=== PATIENT | female | born 1955 | race Caucasian/White ===

== ENCOUNTER 2022-06-22 10:58 | Emergency (ER) | payer MEDICARE ==
[~2022-06-22] VITALS: Ht 157.5 cm; Wt 77.3 kg
[2022-06-22 11:53] LABS: BASO # 0.1 K/mm3 (0.0-0.2); BASO % 0.7 % (0.0-2.0); EOS # 0.1 K/mm3 (0.0-0.7); EOS % 1.2 % (0.0-4.0); HEMATOCRIT 40.9 % (37.0-47.0); HEMOGLOBIN 12.9 g/dl (12.5-16.0); LYMPH # 2.3 K/mm3 (1.2-3.4); LYMPH % 25.3 % (20.0-51.0); MEAN CELL VOLUME 91 fl (80.0-100.0); MEAN CORPUSCULAR HEMOGLOBIN 29 pg (27-31); MEAN CORPUSCULAR HGB CONC 32 g/dl (33.0-37.0); MEAN PLATELET VOLUME 9.5 fl (7.4-10.4); MONO # 0.5 K/mm3 (0.1-0.6); MONO % 5.5 % (1.7-9.3); PLATELET COUNT 435 K/mm3 (130-400); RED BLOOD COUNT 4.48 M/mm3 (4.10-5.30); REDCELL DISTRIBUTION WIDTH-CV 13.7 % (11.5-14.5)
--- NOTE | 2022-06-22 12:32 | NUR ---
MARQUISE contacted Deshawn at [facility] to notify them that the patients family has mentioned him. Per Deshawn, he told the patient and her family to notify staff that they are working with him. Deshawn states that they are trying to admit the patient to their LTC unit. Per Deshawn, if we are needing to admit the patient to their facility from the ER, they are willing to do that.
[2022-06-22 12:49] LABS: ALBUMIN 3.3 gm/dL (3.4-4.8); BILIRUBIN,TOTAL 0.3 mg/dL (0.2-1.2); CALCIUM 8.8 mg/dL (8.4-10.2); CREATININE, serum 0.65 mg/dL (0.57-1.11); POTASSIUM 4.1 mmol/L (3.5-4.5); TOTAL PROTEIN 6.2 gm/dL (6.2-8.1)
[2022-06-22 14:43] VITALS: BP 144/77; PULSE 88; TEMP 99.1
== END 2022-06-22 14:43 | disposition home or self-care (01) ==
LOC: COL.ER 10:58
PROVIDERS: Nurse Practitioner Primary Care
DX: R19.7 Diarrhea, unspecified (principal); F17.200 Nicotine dependence, unspecified, uncomplicated; Z28.310 Unvaccinated for COVID-19

== ENCOUNTER → 2022-07-28 | Outpatient (CLI) | payer MEDICARE | LOC: COL.RAD 14:13 | DX: M17.11 Unilateral primary osteoarthritis, right knee (principal); M51.36 Other intervertebral disc degeneration, lumbar region; M25.552 Pain in left hip ==

== ENCOUNTER → 2022-07-28 | Outpatient (CLI) | payer MEDICARE | LOC: MHCPAIN 12:44 | DX: M48.062 Spinal stenosis, lumbar region with neurogenic claudication (principal); M25.552 Pain in left hip; M25.561 Pain in right knee | CPT/HCPCS: G0463 ==

== ENCOUNTER → 2022-09-04 | Outpatient (REF) | payer MEDICARE ==
[2022-09-04 14:45] LABS: COLLECTION METHOD CLEAN CATCH
[2022-09-04 14:57] LABS: PH 5.5 (5.0-8.5); SQUAMOUS EPITHELIAL 0-2 /hpf (0-10); URINE APPEARANCE Clear (CLEAR/HAZY); URINE BACTERIA None Seen /hpf (NONE SEEN); URINE COLOR Yellow (YELLOW); URINE KETONE Negative (NEGATIVE); URINE PROTEIN(semi-quant) Negative (NEGATIVE); URINE RBC 0-2 /hpf (0-2)
[2022-09-04 14:58] LABS: URINE BLOOD TRACE-INTACT (NEGATIVE); URINE GLUCOSE 3+ (NEGATIVE); URINE NITRATE Negative (NEGATIVE); URINE UROBILINOGEN 0.2 E.U/dL (0.2-1.0)
== END ==
LOC: ZCOL.LAB 14:40
PROVIDERS: Student in an Organized Health Care Education/Training Program
DX: Z01.89 Encounter for other specified special examinations (principal)

== ENCOUNTER 2023-02-02 11:15 | Outpatient (RCR) | payer MEDICARE ==
[~2023-02-02 11:15] MED LIST: ANTI-DIARRHEAL2 MG PO; ATARAX 25MG25 MG/TAB PO; B-12 500 MCG PO; COLESTID 1GM1 G PO; DESYREL 50MG50 MG PO; EFFEXOR XR75 MG/CAP PO; INSULIN AS100 UNIT/3 SQ; INSULIN GL100 UNIT/2 SQ; JANUVIA 100MG100 MG PO; LIPITOR20 MG PO; LYRICA 75MG CAP75 MG PO; MIRAPEX 1MG PO; NATURAL IRON65 MG; NICODERM C21 MG/PATC TD; PRINIVIL10 MG PO; TYLENOL 500MG500 MG PO; VITAMIN D 50,1.25 MG PO; ZANAFLEX2 MG PO
== END 2023-02-04 | disposition home or self-care (01) ==
LOC: WSPT
DX: M48.062 Spinal stenosis, lumbar region with neurogenic claudication (principal)

== ENCOUNTER → 2023-07-25 | Outpatient (CLI) | payer MEDICARE | LOC: MHCPAIN 10:34 | DX: M48.062 Spinal stenosis, lumbar region with neurogenic claudication (principal); M51.36 Other intervertebral disc degeneration, lumbar region; M17.11 Unilateral primary osteoarthritis, right knee; M54.16 Radiculopathy, lumbar region | CPT/HCPCS: G0463 ==

== ENCOUNTER → 2023-09-12 | Outpatient (CLI) | payer MEDICARE, MEDICAID | LOC: MHCPAIN 12:51 | DX: M48.062 Spinal stenosis, lumbar region with neurogenic claudication (principal); M51.36 Other intervertebral disc degeneration, lumbar region; M17.11 Unilateral primary osteoarthritis, right knee | CPT/HCPCS: G0463 ==

== ENCOUNTER 2023-11-24 11:20 | Emergency (ER) | payer MEDICARE, MEDICAID ==
[~2023-11-24] VITALS: Ht 157.5 cm; Wt 97.7 kg
[~2023-11-24 11:20] MED LIST changes: -DESYREL 50MG50 MG PO; +DESYREL DIVIDO150 M1 PO; +LYRICA 50MG CAP50 MG PO; -LYRICA 75MG CAP75 MG PO; -PRINIVIL10 MG PO; +ZESTRIL 20MG TA20 MG PO
[2023-11-24 11:37] VITALS: TEMP 97.9
[2023-11-24] MEDS ORDERED: Ketorolac 15 MG/ML VIAL IM ONE (13:00)
[2023-11-24] MEDS ORDERED: CALCIUM/MAGNESI1 T13 PO (13:02)
[2023-11-24 14:15] VITALS: BP 116/72; PULSE 88
== END 2023-11-24 14:15 | disposition home or self-care (01) ==
LOC: COL.ER 11:20
DX: M79.604 Pain in right leg (principal); M79.605 Pain in left leg
CPT/HCPCS: J1885

== ENCOUNTER 2023-12-02 07:47 | Inpatient (IN) | payer MEDICARE, MEDICAID ==
[2023-12-02] VITALS (229 sets, daily range): BP systolic 74–104; BP diastolic 38–71; PULSE 114–126; TEMP 98.6–98.9; O2SAT 89–100
[~2023-12-02] VITALS: Ht 157.5 cm; Wt 101.5 kg
[~2023-12-02 07:47] MED LIST changes: +CALCIUM/MAGNESI1 T13 PO
[2023-12-02] MEDS ORDERED: NS 500 ML IV PRN (08:00)
[2023-12-02 08:10] LABS: BASO # 0.1 K/mm3 (0.0-0.2); BASO % 0.4 % (0.0-2.0); EOS # 0.1 K/mm3 (0.0-0.7); EOS % 0.8 % (0.0-4.0); GRAN # 13.2 K/mm3 (1.4-6.5); GRAN % 86.8 % (42.2-75.2); LYMPH # 0.9 K/mm3 (1.2-3.4); MEAN CELL VOLUME 92 fl (80.0-100.0); MEAN CORPUSCULAR HGB CONC 30 g/dl (33.0-37.0); MEAN PLATELET VOLUME 10.3 fl (7.4-10.4); MONO # 0.9 K/mm3 (0.1-0.6); MONO % 5.6 % (1.7-9.3); PLATELET COUNT 352 K/mm3 (130-400); RED BLOOD COUNT 3.57 M/mm3 (4.10-5.30); REDCELL DISTRIBUTION WIDTH-CV 15.2 % (11.5-14.5)
[2023-12-02 08:25] LABS: ALBUMIN 3.4 g/dL (3.4-4.8); BILIRUBIN,TOTAL 0.4 mg/dL (0.2-1.2); C-REACTIVE PROTEIN 8.64 mg/dL (0.00-0.50); CALCIUM 9.2 mg/dL (8.4-10.2); CREATININE, serum 4.02 mg/dL (0.57-1.11); HEMOGLOBIN 9.9 g/dl (12.5-16.0); MEAN CORPUSCULAR HEMOGLOBIN 28 pg (27-31); TOTAL PROTEIN 7.5 g/dl (6.2-8.1)
[2023-12-02 08:28] LABS: POTASSIUM 6.7 mEq/L (3.5-4.5)
[2023-12-02] MEDS ORDERED: Morphine 4 MG/ML VIAL IV ONE (08:30)
[2023-12-02] MEDS ORDERED: Insulin Regular Human (NovoLIN R/HumuLIN R) IV ONE ×2 (08:30→22:30)
[2023-12-02] MEDS ORDERED: Dextrose 50% Water 25 GM/50 ML SYRINGE IV PRN (08:45)
[2023-12-02 09:50] LABS: URINE APPEARANCE CLEAR (CLEAR/HAZY); URINE BLOOD 1+ (NEGATIVE); URINE COLOR YELLOW (YELLOW); URINE GLUCOSE NEGATIVE (NEGATIVE); URINE KETONE NEGATIVE (NEGATIVE); URINE NITRATE NEGATIVE (NEGATIVE); URINE PROTEIN(semi-quant) TRACE (NEGATIVE)
[2023-12-02 10:11] LABS: COLLECTION METHOD CATHETER
[2023-12-02] MEDS ORDERED: Heparin 5,000 UNITS/ML 1 ML VIAL SQ SCH (10:29)
[2023-12-02] MEDS ORDERED: Docusate Sodium 100 MG CAP PO PRN (10:30)
[2023-12-02] MEDS ORDERED: Polyethylene Glycol 3350 17 GM PDS PO PRN (10:30)
[2023-12-02] MEDS ORDERED: D5 1/2 NS 1,000 ML IV SCH (10:30)
[2023-12-02] MEDS ORDERED: Ondansetron 4 MG/2 ML VIAL IV PRN (10:30)
[2023-12-02] MEDS ORDERED: Acetaminophen 325 MG TAB PO PRN (10:30)
[2023-12-02] MEDS ORDERED: Sodium Zirconium Cyclosilicate for Oral Susp 10 GM PACKET PO ONE ×2 (10:45→16:15)
[2023-12-02] MEDS ORDERED: HYDROmorphone 0.5 MG/0.5 ML SYRINGE IV ONE ×2 (10:45→11:45)
[2023-12-02] MEDS ORDERED: tiZANidine 4 MG TAB PO PRN (10:45)
[2023-12-02] MEDS ORDERED: Insulin Lispro (HumaLOG) IV ONE ×2 (10:45→16:15)
[2023-12-02 11:17] LABS: CALCIUM 8.7 mg/dL (8.4-10.2); CREATININE, serum 3.58 mg/dL (0.57-1.11)
[2023-12-02] MEDS ORDERED: Insulin Lispro (HumaLOG) SQ SCH (12:00)
[2023-12-02 13:17] LABS: CALCIUM 8.8 mg/dL (8.4-10.2); CREATININE, serum 3.44 mg/dL (0.57-1.11); POTASSIUM 5.7 mEq/L (3.5-4.5)
[2023-12-02] MEDS ORDERED: Nystatin Powder **** subs to Miconazole Powder TOP SCH (14:03)
[2023-12-02 15:49] LABS: CALCIUM 8.7 mg/dL (8.4-10.2); CREATININE, serum 3.17 mg/dL (0.57-1.11)
[2023-12-02 15:51] LABS: POTASSIUM 6.4 mEq/L (3.5-4.5)
[2023-12-02] MEDS ORDERED: Albuterol 0.083% Neb Soln 2.5 MG/3 ML UD IH ONE (16:15)
[2023-12-02] MEDS ORDERED: Sodium Bicarbonate 8.4% 50 MEQ/50 ML SYRINGE IV ONE (16:15)
[2023-12-02 16:36] LABS: ARTERIAL BLD GAS O2 SATURATION 91.3 % (92-100); ARTERIAL BLD GAS TCO2 CT 19.6; ARTERIAL BLOOD GAS BASE EXCESS -7.1 (-2-2); ARTERIAL BLOOD GAS HCO3 18.5 meq/L (22-26); ARTERIAL BLOOD GAS PCO2 37.4 mmHg (35-45); ARTERIAL BLOOD GAS PO2 62.5 mmHg (80-100); ARTERIAL BLOOD GAS pH 7.31 (7.35-7.45)
[2023-12-02] MEDS ORDERED: Morphine 4 MG/ML VIAL IV PRN (16:45)
[2023-12-02] MEDS ORDERED: hydrALAZINE 20 MG/ML 1 ML VIAL IV PRN (16:45)
[2023-12-02] MEDS ORDERED: NS 500 ML IV ONE (17:00)
[2023-12-02] MEDS ORDERED: Linezolid 600 MG TAB PO SCH (18:00)
[2023-12-02 18:47] LABS: CALCIUM 8.4 mg/dL (8.4-10.2); CREATININE, serum 2.87 mg/dL (0.57-1.11); POTASSIUM 5.2 mEq/L (3.5-4.5)
--- NOTE | 2023-12-02 19:29 | NUR ---
PT ADMITTED FROM ED AT 1330. PT IS DROWSY BUT WAKES EASILY, ANSWERS QUESTIONS APPROPRIATELY. MONTAGUE CATHETER IN PLACE UPON ADMISSION. SKIN TO ABD AND GROIN FOLDS NOTED TO BE EXCORIATED AND OPEN, INTERDRY CLOTH IN PLACE. MULTIPLE OPEN AREAS NOTED TO R SIMENTAL/LOWER LEG, 2X3 CM OPEN ULCER TO L SIMENTAL, BOTH R/T CELLULITIS. WOUNDS LEFT JESSICA. STAGE 2 PRESSURE WOUND TO COCCYX, ON BOTH SIDES OF GLUTEAL CLEFT. PT ON 2HR TURN SCHEDULE.
[2023-12-02 19:58] LABS: CALCIUM 8.1 mg/dL (8.4-10.2); CREATININE, serum 2.61 mg/dL (0.57-1.11); POTASSIUM 5.6 mEq/L (3.5-4.5)
[2023-12-02] MEDS ORDERED: NS 1,000 ML IV SCH (20:00)
[2023-12-02] MEDS ORDERED: Pregabalin 75 MG CAP PO SCH (21:00)
[2023-12-02] MEDS ORDERED: Miconazole 2% Topical Powder BOTTLE TP SCH (21:00)
[2023-12-02] MEDS ORDERED: Atorvastatin 20 MG TAB PO SCH (21:00)
[2023-12-02] MEDS ORDERED: Insulin Glargine-ygfn (Lantus) SQ SCH (21:00)
[2023-12-02 22:05] LABS: CALCIUM 8.3 mg/dL (8.4-10.2); CREATININE, serum 2.43 mg/dL (0.57-1.11)
[2023-12-02] MEDS ORDERED: Dextrose 50% Water 25 GM/50 ML SYRINGE IV ONE (22:30)
[2023-12-03] VITALS (268 sets, daily range): BP systolic 63–1149; BP diastolic 27–99; PULSE 104–140; TEMP 98.1–100.8; O2SAT 57–100
[2023-12-03 00:20] LABS: CALCIUM 8.2 mg/dL (8.4-10.2); POTASSIUM 5.1 mEq/L (3.5-4.5)
[2023-12-03 01:06] LABS: CREATININE, serum 2.27 mg/dL (0.57-1.11)
[2023-12-03 05:41] LABS: BASO # 0.1 K/mm3 (0.0-0.2); BASO % 0.6 % (0.0-2.0); EOS # 0.5 K/mm3 (0.0-0.7); EOS % 3.6 % (0.0-4.0); GRAN % 73.2 % (42.2-75.2); LYMPH # 1.8 K/mm3 (1.2-3.4); LYMPH % 14.7 % (20.0-51.0); MEAN CELL VOLUME 89 fl (80.0-100.0); MEAN CORPUSCULAR HGB CONC 31 g/dl (33.0-37.0); MEAN PLATELET VOLUME 10.4 fl (7.4-10.4); MONO % 7.7 % (1.7-9.3); PLATELET COUNT 366 K/mm3 (130-400)
[2023-12-03 05:45] LABS: HEMATOCRIT 31.9 % (37.0-47.0); HEMOGLOBIN 9.8 g/dl (12.5-16.0); MEAN CORPUSCULAR HEMOGLOBIN 27 pg (27-31)
[2023-12-03 06:04] LABS: C-REACTIVE PROTEIN 14.42 mg/dL (0.00-0.50); CALCIUM 8.5 mg/dL (8.4-10.2); POTASSIUM 5.5 mEq/L (3.5-4.5)
[2023-12-03 06:19] LABS: CREATININE, serum 1.8 mg/dL (0.57-1.11)
[2023-12-03] MEDS ORDERED: Dextrose (Glucose) 15 GM (4 x 3.75 GM) Chewable TABLET PACK PO PRN (07:15)
[2023-12-03] MEDS ORDERED: Dextrose 50% Water 25 GM/50 ML SYRINGE IV PRN ×2 (07:15→12:15)
[2023-12-03] MEDS ORDERED: Glucagon 1 MG VIAL IM PRN (07:15)
[2023-12-03 08:59] LABS: CALCIUM 8.3 mg/dL (8.4-10.2); CREATININE, serum 1.55 mg/dL (0.57-1.11); POTASSIUM 5.4 mEq/L (3.5-4.5)
[2023-12-03] MEDS ORDERED: Fludrocortisone 0.1 MG TAB PO ONE (10:15)
[2023-12-03] MEDS ORDERED: LR 1,000 ML IV ONE ×2 (10:15→11:00)
[2023-12-03] MEDS ORDERED: Vasopressin 20 UNITS in NS 100 ML IV PRN (10:15)
[2023-12-03] MEDS ORDERED: 1: LR 1,000 ML 2: NS 1,000 ML IV SCH (10:15)
[2023-12-03 10:28] LABS: ARTERIAL BLD GAS O2 SATURATION 96.6 % (92-100); ARTERIAL BLD GAS TCO2 CT 13.2; ARTERIAL BLOOD GAS HCO3 12.5 meq/L (22-26); ARTERIAL BLOOD GAS PCO2 24.4 mmHg (35-45); ARTERIAL BLOOD GAS PO2 88.7 mmHg (80-100); ARTERIAL BLOOD GAS pH 7.33 (7.35-7.45)
[2023-12-03] MEDS ORDERED: Sodium Bicarbonate/Water,Steri 1,150 ML IV SCH ×2 (10:45→12:15)
[2023-12-03] MEDS ORDERED: LORazepam 2 MG/ML 1 ML VIAL IV ONE (11:00)
[2023-12-03 11:22] LABS: CALCIUM 7.8 mg/dL (8.4-10.2); CREATININE, serum 1.65 mg/dL (0.57-1.11); POTASSIUM 5.5 mEq/L (3.5-4.5)
[2023-12-03] MEDS ORDERED: Midazolam 2 MG/2 ML VIAL IV ONE (11:34)
[2023-12-03] MEDS ORDERED: Rocuronium 50 MG/5 ML Multi-Dose VIAL IV ONE (11:34)
[2023-12-03] MEDS ORDERED: Phenylephrine 500 MCG/5 ML VIAL IV ONE (12:00)
[2023-12-03] MEDS ORDERED: Insulin Human Regular/NS 100 ML IV SCH (12:15)
[2023-12-03] MEDS ORDERED: Naloxone 0.4 MG/ML VIAL IV PRN (12:15)
[2023-12-03] MEDS ORDERED: fentaNYL 100 ML IV SCH (12:15)
[2023-12-03] MEDS ORDERED: Albuterol 0.083% Neb Soln 2.5 MG/3 ML UD IH PRN (12:15)
[2023-12-03 13:02] LABS: CALCIUM 7.2 mg/dL (8.4-10.2); CREATININE, serum 1.76 mg/dL (0.57-1.11)
[2023-12-03 13:04] LABS: MAGNESIUM 2.7 mg/dL (1.6-2.6); PHOSPHOROUS 5.5 mg/dL (2.3-4.7)
[2023-12-03 13:09] LABS: POTASSIUM 7.3 mEq/L (3.5-4.5)
[2023-12-03 13:36] LABS: ARTERIAL BLD GAS O2 SATURATION 99.9 % (92-100); ARTERIAL BLD GAS TCO2 CT 12.3; ARTERIAL BLOOD GAS BASE EXCESS -13.7 (-2-2); ARTERIAL BLOOD GAS HCO3 11.5 meq/L (22-26); ARTERIAL BLOOD GAS PCO2 25.2 mmHg (35-45); ARTERIAL BLOOD GAS pH 7.28 (7.35-7.45)
[2023-12-03 13:37] LABS: ARTERIAL BLOOD GAS PO2 293.1 mmHg (80-100)
--- NOTE | 2023-12-03 13:56 | NUR ---
MARQUISE attempted to meet with Pt bedside to complete initial consult and discuss discharge planning. Pt unable to complete assessment due to medical condition. MARQUISE completed assessment with DPLORI Zepedaie [phone] in ICU waiting room. Multiple family members were here visiting. DPOA paperwork was provided to nursing staff. Pt resides at [facility] [place]. PCP confirmed [facility]. Siomara unsure pharmacy and states it is that the nursing facility uses. Siomara stated before this, Pt was ambulating fine using a walker but has been in a wheelchair lately. Siomara stated before this Pt was independent with ADLs but unsure her condition after hospital stay. MARQUISE attempted to get more information from Siomara about what she meant by "this" but could not get additional information. Siomara has many concerns with Pt returning back to nursing facility. Siomara asked MARQUISE if I was the SW coming to speak to her about the facility, MARQUISE informed her that no that is Nyla and she will touch base tomorrow. Siomara had no additional questions for SW. MARQUISE will continue to follow for D/C planning. D/C disposition: TBD pending hospital course
[2023-12-03] MEDS ORDERED: Albuterol/Ipratropium 3 MG-0.5 MG/3 ML Neb Soln IH SCH (14:00)
[2023-12-03 15:54] LABS: CALCIUM 7.4 mg/dL (8.4-10.2); CREATININE, serum 1.86 mg/dL (0.57-1.11); POTASSIUM 5.5 mEq/L (3.5-4.5)
[2023-12-03] MEDS ORDERED: LR 500 ML IV ONE (16:15)
[2023-12-03] MEDS ORDERED: Sodium Bicarbonate 8.4% 50 MEQ/50 ML SYRINGE IV ONE (18:30)
--- NOTE | 2023-12-03 20:16 | NUR ---
[address] MAHONEY. AT THIS TIME PT BECAME HYPOTENSIVE, CONFUSED, AGITATED, DID NOT FOLLOW COMMANDS. OXYGEN NEEDS INCREASED. PT WAS ALERT AND ORIENTED PRIOR TO THIS EVENT. THIS NURSE AND DR MAHONEY SPOKE W/ PT'S DAUGHTER MIRYAM, DECISION TO INTUBATE WAS MADE. 1134 VERSED, PROPOFOL, ROCURONIUM, LOUANN ALL GIVEN BY REBA CARLOS CRNA. 1135 PT INTUBATED BY REBA CARLOS CRNA. 7.5 ETT PLACED, MEASURED 22CM AT TEETH. OG TUBE ALSO PLACED BY NURSE AT THIS TIME. PLACEMENT CONFIRMED W/ XRAY. 1200 ART LINE PLACED BY NOEL. BLOOD PRESSURE LABILE THROUGHOUT AFTERNOON, VASOPRESSIN STARTED IN ADDITION TO LEVOPHED. BED BATH DONE W/ SURGICAL SCRUB, ALL SKIN THOROUGHLY DRIED. INTERDRY PLACED TO EXCORIATED AREAS IN ABD AND GROIN FOLDS. ULCERS TO LOWER LEGS LEFT OPEN TO AIR.
--- NOTE | 2023-12-03 20:23 | NUR ---
UNABLE TO OBTAIN O2 SATURATIONS VIA PULSE OX.
[2023-12-03 21:03] LABS: CALCIUM 7.2 mg/dL (8.4-10.2); CREATININE, serum 1.63 mg/dL (0.57-1.11); POTASSIUM 4.6 mEq/L (3.5-4.5)
--- NOTE | 2023-12-03 21:38 | NUR ---
FIO2 REDUCED TO 50%.
--- NOTE | 2023-12-03 21:40 | NUR ---
PT AWAKE AND AGITATED ON VENTILATOR. SCANT CLEAR THICK SXN'D FROM ETT.
--- NOTE | 2023-12-03 23:46 | NUR ---
FIO2 REDUCED TO 45%.
[2023-12-04] VITALS (211 sets, daily range): BP systolic 103–134; BP diastolic 53–86; PULSE 100–130; TEMP 95–99.1; O2SAT 73–100
--- NOTE | 2023-12-04 00:26 | NUR ---
PT SWITCHED FROM HEATED HUMIDITY TO HME.
--- NOTE | 2023-12-04 01:16 | NUR ---
LARGE THICK YELLOW SXN'D FROM ETT.
[2023-12-04 03:32] LABS: ALBUMIN 2.2 g/dL (3.4-4.8); ALKALINE PHOSPHATASE 134 U/L (40-150); ANION GAP 14 mmol/L (7-16); BILIRUBIN,TOTAL 0.6 mg/dL (0.2-1.2); CALCIUM 7.2 mg/dL (8.4-10.2); CHLORIDE 102 mEq/L (98-107); CREATININE, serum 1.46 mg/dL (0.57-1.11); GLUCOSE 245 mg/dL (70-99); POTASSIUM 3.8 mEq/L (3.5-4.5); SODIUM 139 mEq/L (136-145); TOTAL PROTEIN 5.3 g/dl (6.2-8.1)
[2023-12-04] MEDS ORDERED: Potassium Chloride 100 ML IV SCH ×2 (04:00→15:30)
[2023-12-04] MEDS ORDERED: *Potassium Replacement Protocol MC SCH (04:00)
--- NOTE | 2023-12-04 04:11 | NUR ---
FIO2 INCREASED TO 60% TO MAINTAIN SATURATIONS ABOVE 92%.
[2023-12-04 04:29] LABS: BLOOD UREA NITROGEN 41 mg/dL (10-20)
[2023-12-04 05:31] LABS: ARTERIAL BLD GAS O2 SATURATION 98.6 % (92-100); ARTERIAL BLD GAS TCO2 CT 19.1; ARTERIAL BLOOD GAS BASE EXCESS -3.7 (-2-2); ARTERIAL BLOOD GAS HCO3 18.4 meq/L (22-26); ARTERIAL BLOOD GAS PCO2 25.1 mmHg (35-45); ARTERIAL BLOOD GAS PO2 127.5 mmHg (80-100); ARTERIAL BLOOD GAS pH 7.48 (7.35-7.45)
[2023-12-04 06:06] LABS: BASO % 0.2 % (0.0-2.0); EOS % 0.1 % (0.0-4.0); GRAN # 15.8 K/mm3 (1.4-6.5); GRAN % 87.2 % (42.2-75.2); HEMOGLOBIN 11.1 g/dl (12.5-16.0); LYMPH # 1.6 K/mm3 (1.2-3.4); LYMPH % 8.5 % (20.0-51.0); MEAN CELL VOLUME 87 fl (80.0-100.0); MEAN CORPUSCULAR HEMOGLOBIN 28 pg (27-31); MEAN CORPUSCULAR HGB CONC 32 g/dl (33.0-37.0); MONO # 0.6 K/mm3 (0.1-0.6); MONO % 3.5 % (1.7-9.3); RED BLOOD COUNT 3.97 M/mm3 (4.10-5.30); REDCELL DISTRIBUTION WIDTH-CV 14.8 % (11.5-14.5)
[2023-12-04 06:29] LABS: MAGNESIUM 2.7 mg/dL (1.6-2.6); PHOSPHOROUS 3.2 mg/dL (2.3-4.7)
[2023-12-04 06:40] LABS: CALCIUM 7.4 mg/dL (8.4-10.2); CREATININE, serum 1.4 mg/dL (0.57-1.11); POTASSIUM 3.7 mEq/L (3.5-4.5)
[2023-12-04 07:17] LABS: HEMATOCRIT 34.4 % (37.0-47.0)
[2023-12-04 07:18] LABS: MEAN PLATELET VOLUME 10.8 fl (7.4-10.4); PLATELET COUNT 218 K/mm3 (130-400)
[2023-12-04] MEDS ORDERED: Fludrocortisone 0.1 MG TAB PO SCH (08:00)
--- NOTE | 2023-12-04 08:00 | NUR ---
ASSESSMENT COMPLETED AT THIS TIME BY THIS RN AND SEVERO COOK. PT'S DAUGHTER MIRYAM AT THE BEDSIDE AND TEARFUL. MIRYAM ASKS WHEN PROVIDERS WILL BE BY TO SEE PT. MIRYAM NOTIFIED THAT BALJIT ROMERO WITH WOUND CARE HAD ALREADY BEEN BY TO ASSESS PT. MIRYAM UPSET THAT SHE WAS NOT NOTIFIED WHEN NICK WAS HERE. THIS RN EXPLAINED TO MIRYAM THAT WE WERE UNAWARE SHE WANTED TO BE PRESENT FOR NICK'S VISIT. THIS RN CALLED NICK TO SEE IF SHE WAS STILL IN THE BUILING. NICK WAS NOT IN THE BUIDLING BUT WILLING TO SPEAK WITH MIRYAM OVER THE PHONE. MIRYAM AND NICK HAD LONG CONVERSATION REGUARDING PT'S PAST AND CURRENT CARE. ANNE AND MILAN WITH SOCIAL WORK ALSO IN TO SEE MIRYAM. MIRYAM LEFT TO SPEAK WITH ANNE AND MILAN IN THE WAITING ROOM. CHUX CHANGED BENEATH PT'S LEGS DUE TO BE DRAINAGE FROM BLE WOUNDS. REDNESS NOTED TO PT'S GROIN AND PANNUS; INTER-DRY PLACED IN SKIN FOLDS ALONG WITH MICONAZOLE. SKIN TEAR NOTED TO LEFT UPPER BUTTOCK APPROX [id number]. PT REMAINS ON INSULIN GTT WITH HOURLY ACCU CHECKS. MIRYAM UPDATED ON PLAN OF CARE AND ALL QUESTIONS ANSWERED APPROPRIATELY.
[2023-12-04] MEDS ORDERED: INSULIN AS100 UNIT/3 SQ (08:32)
[2023-12-04] MEDS ORDERED: Insulin Glargine-ygfn (Lantus) SQ ONE ×2 (10:15→10:30)
[2023-12-04] MEDS ORDERED: methylPREDNISolone Sod Succ 40 MG/ML VIAL IV SCH (10:15)
--- NOTE | 2023-12-04 10:21 | NUR ---
MARQUISE and CM Director Nyla Duncan met with patient's daughter Siomara in family room in ICU. Siomara tearful, overwhelmed and upset with patient condition. She had just spoken with wound care via phone and was visibly upset and angry. Siomara verified that patient has lived at [facility] for 2 years and has been happy there and is involved with other residents. Siomara shared that her father had been at [facility] until his . Siomara states that she is patient's DPOA and [facility] can provide a copy. Nyla reached out to [facility] to request copy be faxed for patient's chart. Siomara was provided opportunity to express her frustrations and concerns. Medicare.gov list of SNFs provided for [place] and [facility] for Siomara to review if they decide patient will not return to [facility]. MARQUISE discussed all levels of care for consideration for discharge to include LTACH, Swing Bed and SNF. All questions answered. Siomara provided her contact numbers as cell: [phone] and her work at [employer] [phone] between 8-5 daily. Siomara states to call her work number during the day if she is not at hospital with patient. Siomara stated she has a sister that is not well involved with patient due to being an addict and having limited relationship with patient. Siomara states sister may visit.
[2023-12-04] MEDS ORDERED: NORCO 325 MG-51 TAB PO (11:48)
[2023-12-04] MEDS ORDERED: FLONASEALLERGY NS (11:50)
[2023-12-04] MEDS ORDERED: MAG-OX 400400 MG/TAB PO (11:52)
[2023-12-04] MEDS ORDERED: VITAMIN D31000 IU PO (11:52)
--- NOTE | 2023-12-04 11:55 | NUR ---
Data: Spiritual care visit attempted during Waiter/Waitress rounds. Patient intubated. No visitors. Assessment: Not at this time. Plan of Care: Chaplains will remain available as needed/requested while Patient is admitted to this hospital.
[2023-12-04] MEDS ORDERED: CALCIUM 600-D 61 TAB PO (12:05)
[2023-12-04] MEDS ORDERED: LASIX 40MG TABL40 MG PO (12:06)
[2023-12-04] MEDS ORDERED: MIRALAX PA17 GM/Dose PO (12:07)
[2023-12-04] MEDS ORDERED: FOLIC ACID0.4 MG PO (12:07)
[2023-12-04] MEDS ORDERED: EFFEXOR XR37.5 MG/CA PO (12:08)
[2023-12-04 13:16] LABS: ARTERIAL BLD GAS TCO2 CT 24.7; ARTERIAL BLOOD GAS BASE EXCESS 1.9 (-2-2); ARTERIAL BLOOD GAS HCO3 23.8 meq/L (22-26); ARTERIAL BLOOD GAS PCO2 28.2 mmHg (35-45); ARTERIAL BLOOD GAS PO2 71.9 mmHg (80-100); ARTERIAL BLOOD GAS pH 7.54 (7.35-7.45)
--- NOTE | 2023-12-04 16:45 | NUR ---
Pt taken for a CT scan of the brain at 1630. Pt accompanied by this RN, Nimisha,RN, and RT via bed. Pt arrived back to the ICU at this time. Monitors attached to pt. VSS. Pt repositioned. IV infusions resumed.
--- NOTE | 2023-12-04 17:31 | NUR ---
SEDATION VACATION NOT NECESSARY AT THIS TIME. PT WAS OFF SEDATION FOR THE MAJORITY OF SHIFT.
[2023-12-04] MEDS ORDERED: Budesonide Neb Susp 0.5 MG/2 ML AMP IH SCH (19:00)
[2023-12-04 20:22] LABS: CALCIUM 7.3 mg/dL (8.4-10.2); CREATININE, serum 1.64 mg/dL (0.57-1.11); POTASSIUM 4.2 mEq/L (3.5-4.5)
[2023-12-04 21:18] LABS: ARTERIAL BLD GAS O2 SATURATION 91.5 % (92-100); ARTERIAL BLD GAS TCO2 CT 25.8; ARTERIAL BLOOD GAS BASE EXCESS 3.1 (-2-2); ARTERIAL BLOOD GAS HCO3 24.9 meq/L (22-26); ARTERIAL BLOOD GAS PCO2 29.4 mmHg (35-45); ARTERIAL BLOOD GAS PO2 60.3 mmHg (80-100); ARTERIAL BLOOD GAS pH 7.55 (7.35-7.45)
[2023-12-05] VITALS (119 sets, daily range): BP systolic 87–142; BP diastolic 43–110; PULSE 94–134; TEMP 98.1–99.1; O2SAT 90–99
[2023-12-05 04:47] LABS: MEAN CELL VOLUME 86 fl (80.0-100.0); MEAN CORPUSCULAR HGB CONC 32 g/dl (33.0-37.0); MEAN PLATELET VOLUME 10.7 fl (7.4-10.4); PLATELET COUNT 223 K/mm3 (130-400); RED BLOOD COUNT 3.45 M/mm3 (4.10-5.30); REDCELL DISTRIBUTION WIDTH-CV 14.7 % (11.5-14.5)
[2023-12-05 04:54] LABS: CALCIUM 7.3 mg/dL (8.4-10.2); CREATININE, serum 1.8 mg/dL (0.57-1.11); MAGNESIUM 2.5 mg/dL (1.6-2.6); PHOSPHOROUS 3.7 mg/dL (2.3-4.7); POTASSIUM 3.5 mEq/L (3.5-4.5)
[2023-12-05 05:02] LABS: HEMATOCRIT 29.6 % (37.0-47.0); HEMOGLOBIN 9.6 g/dl (12.5-16.0); MEAN CORPUSCULAR HEMOGLOBIN 28 pg (27-31)
[2023-12-05] MEDS ORDERED: Potassium Chloride 100 ML IV SCH (05:15)
[2023-12-05] MEDS ORDERED: *Potassium Replacement Protocol MC SCH (05:15)
[2023-12-05 05:41] LABS: ARTERIAL BLD GAS O2 SATURATION 91.6 % (92-100); ARTERIAL BLD GAS TCO2 CT 26.3; ARTERIAL BLOOD GAS BASE EXCESS 3.2 (-2-2); ARTERIAL BLOOD GAS HCO3 25.3 meq/L (22-26); ARTERIAL BLOOD GAS PCO2 30.1 mmHg (35-45); ARTERIAL BLOOD GAS PO2 63.2 mmHg (80-100); ARTERIAL BLOOD GAS pH 7.54 (7.35-7.45)
[2023-12-05 05:49] LABS: BAND 6 % (0-10); LYMPHOCYTE 4 % (20.0-51.0); NEUTROPHILS 89 % (42.0-75.2); NUCLEATED RED BLOOD CELL 1 (0-6); PLATELET ESTIMATE NORMAL (NORMAL)
[2023-12-05] MEDS ORDERED: Insulin Lispro (HumaLOG) SQ SCH (09:21)
[2023-12-05] MEDS ORDERED: methylPREDNISolone Sod Succ 40 MG/ML VIAL IV SCH (09:30)
[2023-12-05] MEDS ORDERED: Furosemide 40 MG/4 ML VIAL IV ONE (09:30)
[2023-12-05] MEDS ORDERED: Insulin Glargine-ygfn (Lantus) SQ SCH (09:30)
--- NOTE | 2023-12-05 10:00 | NUR ---
PT REMAINS INTUBATED AND SEDATED. PT GIVEN COMPLETED BATH AND TOLERATED WELL. PT'S DAUGHTER MIRYAM UPDATED ON PT'S CONDITION BY THIS RN AND DR. Phoebe MAHONEY. MIRYAM ALSO AWARE OF PLAN OF CARE; ALL QUESTIONS ANSWERED APPROPRIATELY.
[2023-12-05] MEDS ORDERED: Venlafaxine XR 37.5 MG CAP PO SCH (12:15)
--- NOTE | 2023-12-05 15:56 | NUR ---
FLOW RATE OF LEVOPHED CHANGED TO 15.2 DUE TO CHANGING FROM QUAD STRENGTH LEVOPHED TO REGULAR STRENGTH CONCENTRATION.
[2023-12-05] MEDS ORDERED: Pregabalin 50 MG CAP PO SCH (21:00)
[2023-12-06] VITALS (149 sets, daily range): BP systolic 78–153; BP diastolic 43–71; PULSE 80–117; TEMP 98.3–99.7; O2SAT 92–99
[2023-12-06 05:33] LABS: ARTERIAL BLD GAS TCO2 CT 21.1; ARTERIAL BLOOD GAS BASE EXCESS -1.9 (-2-2); ARTERIAL BLOOD GAS HCO3 20.3 meq/L (22-26); ARTERIAL BLOOD GAS PCO2 25.7 mmHg (35-45); ARTERIAL BLOOD GAS PO2 91.1 mmHg (80-100); ARTERIAL BLOOD GAS pH 7.52 (7.35-7.45)
[2023-12-06 05:36] LABS: BASO % 0.1 % (0.0-2.0); GRAN # 15.8 K/mm3 (1.4-6.5); GRAN % 88.8 % (42.2-75.2); LYMPH # 1.4 K/mm3 (1.2-3.4); LYMPH % 7.6 % (20.0-51.0); MEAN CELL VOLUME 86 fl (80.0-100.0); MEAN CORPUSCULAR HGB CONC 32 g/dl (33.0-37.0); MEAN PLATELET VOLUME 11.1 fl (7.4-10.4); MONO # 0.4 K/mm3 (0.1-0.6); MONO % 2.5 % (1.7-9.3); PLATELET COUNT 173 K/mm3 (130-400); RED BLOOD COUNT 3.16 M/mm3 (4.10-5.30)
[2023-12-06 05:40] LABS: CALCIUM 6.9 mg/dL (8.4-10.2); CREATININE, serum 2.36 mg/dL (0.57-1.11); MAGNESIUM 2.6 mg/dL (1.6-2.6); PHOSPHOROUS 4.3 mg/dL (2.3-4.7); POTASSIUM 3.8 mEq/L (3.5-4.5)
[2023-12-06 05:41] LABS: HEMATOCRIT 27.2 % (37.0-47.0); HEMOGLOBIN 8.8 g/dl (12.5-16.0); MEAN CORPUSCULAR HEMOGLOBIN 28 pg (27-31)
--- NOTE | 2023-12-06 07:00 | NUR ---
Report recieved from SEVERO Cooper. Pt remains intubated. Sedation has been of since 399. Pt not making any purposful movements at this time. Tube feeding is off. Pt has levophed infusing at 0.04mcg/kg/min. Pt has several wounds over body. Pt has david in place, free of kinks and twists. 2 point soft wrist restraints in place. Will continue with POC.
[2023-12-06] MEDS ORDERED: Insulin Glargine-ygfn (Lantus) SQ SCH ×2 (09:30→09:45)
--- NOTE | 2023-12-06 09:58 | NUR ---
Meeting with Daughters, Siomara and Uma, with Delores SMILEY with Woundcare. Uma and Siomara were frustrated with the care that their mother recieved at [facility]. Will speak with Social Work to get them the names and contact info that they need to voice their concerns with the half-way. As with wound care, we did show all wounds to the daughters, explained the treatment plan and answered many questions.
[2023-12-06] MEDS ORDERED: Insulin Glargine-ygfn (Lantus) SQ ONE (10:30)
--- NOTE | 2023-12-06 10:44 | NUR ---
SW attended clinical rounds with medical team. No family present. Patient remains intubated and sedated. Discharge plan pending medical course. Clinical updates to be sent to [facility] today. SW will continue to follow. Discharge plan: pending medical course vs return to [facility]
--- NOTE | 2023-12-06 12:24 | NUR ---
Art line no longer reading or drawing blood, disconinuted. Pictures of wound on legs and buttocks taken.
[2023-12-06] MEDS ORDERED: Potassium Chloride 100 ML IV ONE (12:45)
[2023-12-06] MEDS ORDERED: LR 1,000 ML IV SCH (17:00)
--- NOTE | 2023-12-06 17:03 | NUR ---
Sedation vacation not preformed- sedation was off at start of shift- pt was unable to follow commands with sedation off
[2023-12-06 18:34] LABS: COLLECTION METHOD CATHETER
[2023-12-06 18:47] LABS: URINE APPEARANCE CLEAR (CLEAR/HAZY); URINE BLOOD 3+ (NEGATIVE); URINE COLOR YELLOW (YELLOW); URINE GLUCOSE NEGATIVE (NEGATIVE); URINE KETONE NEGATIVE (NEGATIVE); URINE NITRATE NEGATIVE (NEGATIVE); URINE PROTEIN(semi-quant) 1+ (NEGATIVE); URINE UROBILINOGEN 0.2 E.U/dL (0.2-1.0)
--- NOTE | 2023-12-06 20:02 | NUR ---
PT NOT FOLLOWING COMMANDS. PUPILS EQUAL, ROUND AND REACTIVE. STABLE ON ROUNDS. NO SIGN OF DISTRESS AT THIS TIME. CONTINUE PLAN OF CARE.
--- NOTE | 2023-12-06 22:47 | NUR ---
EXPIRATORY WHEEZES HEARD THROUGHOUT. PRN ALBUTEROL GIVEN. ALSO SXN'D OUT MODERATE THICK VAZ SPUTUM AFTER MOVING PT IN BED.
[2023-12-07] VITALS (256 sets, daily range): BP systolic 95–117; BP diastolic 48–73; PULSE 82–120; TEMP 98.1–98.8; O2SAT 90–98
[2023-12-07 04:55] LABS: BASO % 0.1 % (0.0-2.0); GRAN # 15.2 K/mm3 (1.4-6.5); LYMPH # 1.2 K/mm3 (1.2-3.4); LYMPH % 7.2 % (20.0-51.0); MEAN CELL VOLUME 87 fl (80.0-100.0); MEAN CORPUSCULAR HGB CONC 32 g/dl (33.0-37.0); MEAN PLATELET VOLUME 11.3 fl (7.4-10.4); MONO # 0.4 K/mm3 (0.1-0.6); MONO % 2.6 % (1.7-9.3); PLATELET COUNT 151 K/mm3 (130-400); RED BLOOD COUNT 2.91 M/mm3 (4.10-5.30); REDCELL DISTRIBUTION WIDTH-CV 15.3 % (11.5-14.5)
[2023-12-07 04:56] LABS: HEMATOCRIT 25.4 % (37.0-47.0); HEMOGLOBIN 8.1 g/dl (12.5-16.0); MEAN CORPUSCULAR HEMOGLOBIN 28 pg (27-31)
[2023-12-07 05:15] LABS: CALCIUM 7.2 mg/dL (8.4-10.2); CREATININE, serum 2.59 mg/dL (0.57-1.11); POTASSIUM 3.9 mEq/L (3.5-4.5)
--- NOTE | 2023-12-07 05:20 | NUR ---
SEDATION DECREASED SLOWLY OVER NIGHT. FENTANYL AND PROPOFOL PLACED ON STANDBY AT 0500. PT WILL NOT FOLLOW COMMANDS. WILL OPEN EYES IN RESPONSE TO PAIN.
[2023-12-07 05:29] LABS: ARTERIAL BLD GAS O2 SATURATION 96.7 % (92-100); ARTERIAL BLD GAS TCO2 CT 24.1; ARTERIAL BLOOD GAS BASE EXCESS -0.6 (-2-2); ARTERIAL BLOOD GAS PCO2 33.6 mmHg (35-45); ARTERIAL BLOOD GAS PO2 95.1 mmHg (80-100); ARTERIAL BLOOD GAS pH 7.45 (7.35-7.45)
--- NOTE | 2023-12-07 08:00 | NUR ---
PT REMAINS OFF OF SEDATION. SEDATION HAS BEEN OFF SINCE 0500. PT OPENS EYES SPONTANEOUSLY BUT ONLY REACTS TO PAIN. PT DOES NOT FOLLOW COMMANDS. PT CURRENTLY ON SPONTANEOUS BREATHING TRIAL AND TOLERATING WELL. PT'S DAUGHTER MIRYAM AT THE BEDSIDE AND UPDATED ON PT'S CONDITION AND PLAN OF CARE. DR. MAHONEY ALSO SPOKE WITH MIRYAM AT THIS TIME.
[2023-12-07 08:36] LABS: ARTERIAL BLD GAS O2 SATURATION 92.9 % (92-100); ARTERIAL BLD GAS TCO2 CT 21.5; ARTERIAL BLOOD GAS HCO3 20.6 meq/L (22-26); ARTERIAL BLOOD GAS PCO2 30.7 mmHg (35-45); ARTERIAL BLOOD GAS pH 7.44 (7.35-7.45)
[2023-12-07] MEDS ORDERED: Pantoprazole 40 MG in NS 10 ML IV SCH (09:00)
[2023-12-07] MEDS ORDERED: Insulin Glargine-ygfn (Lantus) SQ SCH (10:00)
[2023-12-07] MEDS ORDERED: Insulin Glargine-ygfn (Lantus) SQ ONE (10:45)
--- NOTE | 2023-12-07 12:30 | NUR ---
1232- THIS RN AT THE BEDSIDE; PT'S HEART RATE WENT FROM 130'S UP TO 180'S. RHYTHM APPEARS TO BE SINUS TACH AT THIS TIME. DR. VALLES CALLED AND MADE AWARE. EKG ORDERED AND RT MADE AWARE. 1233- RT DOING EKG AT THIS TIME. 1236- PT'S HEART RATE SLOWED TO 120'S WHILE RT WAS SETTING UP FOR EKG. EKG CAPTURED. DR. VALLES CALLED AND MADE AWARE OF RESULTS. NO NEW ORDERS RECEIVED FURTHER. 1240-SEDATION INITIATED AT STARTING RATES. PT'S HEART RATE REMAINS SINUS RHYTHM IN THE 120'S. BP 101/72. DR. Phoebe MAHONEY ALSO AWARE OF EVENTS.
--- NOTE | 2023-12-07 13:30 | NUR ---
supervisor fur floor worker attended interdisciplinary clinical rounding with Dr. Harding and Dr. Dominguez. Dr Dominguez reported patient may need [facility] if condition does not improve. SW secure emailed clinical updates to [facility]. Discharge plan: pending medical status
--- NOTE | 2023-12-07 13:37 | NUR ---
maintenance worker contacted Deshawn at [facility] and updated him on patient's status. Deshawn stated if patient goes to LTACH to notify him so he can update the team. MARQUISE explained she would do so.
[2023-12-07] MEDS ORDERED: Insulin Lispro (HumaLOG) SQ SCH (16:00)
[2023-12-07] MEDS ORDERED: Furosemide 100 MG/10 ML VIAL IV ONE (17:15)
[2023-12-08] VITALS (158 sets, daily range): BP systolic 102–130; BP diastolic 48–66; PULSE 87–105; TEMP 98.1–98.5; O2SAT 94–100
[2023-12-08 04:23] LABS: MEAN CELL VOLUME 91 fl (80.0-100.0); MEAN CORPUSCULAR HGB CONC 31 g/dl (33.0-37.0); MEAN PLATELET VOLUME 11.4 fl (7.4-10.4); PLATELET COUNT 177 K/mm3 (130-400); RED BLOOD COUNT 2.55 M/mm3 (4.10-5.30); REDCELL DISTRIBUTION WIDTH-CV 15.5 % (11.5-14.5)
[2023-12-08 04:48] LABS: CALCIUM 7.4 mg/dL (8.4-10.2); CREATININE, serum 3.06 mg/dL (0.57-1.11)
[2023-12-08 04:51] LABS: HEMATOCRIT 23.2 % (37.0-47.0); HEMOGLOBIN 7.2 g/dl (12.5-16.0); MEAN CORPUSCULAR HEMOGLOBIN 28 pg (27-31)
--- NOTE | 2023-12-08 05:35 | NUR ---
PT WAS GIVEN LASIX TODAY. BLOOD PRESSURE SOFT. MAY NEED TO RESTART LEVOPHED. PT IS RESTING QUIETLY AT THIS TIME. PT STILL DOES NOT FOLLOW COMMANDS. RESPIRATIONS EVEN AND UNLABORED. NO SIGN OF DISTRESS AT THIS TIME. CONTINUE PLAN OF CARE
[2023-12-08 06:02] LABS: ARTERIAL BLD GAS O2 SATURATION 96.3 % (92-100); ARTERIAL BLD GAS TCO2 CT 23.8; ARTERIAL BLOOD GAS BASE EXCESS -0.7 (-2-2); ARTERIAL BLOOD GAS HCO3 22.8 meq/L (22-26); ARTERIAL BLOOD GAS PCO2 33.1 mmHg (35-45); ARTERIAL BLOOD GAS PO2 79.5 mmHg (80-100); ARTERIAL BLOOD GAS pH 7.46 (7.35-7.45)
[2023-12-08 06:03] LABS: ANISOCYTOSIS 1+; BAND 2 % (0-10); LYMPHOCYTE 5 % (20.0-51.0); NEUTROPHILS 91 % (42.0-75.2); NUCLEATED RED BLOOD CELL 1 (0-6); PLATELET ESTIMATE NORMAL (NORMAL)
--- NOTE | 2023-12-08 08:06 | NUR ---
Patient is resting with eyes closed, IV PROP and FENT infusing appropriately through RSC Central line, david draining approriately. Pulses on lower extremities with doppler, BLE wounds weeping. Patient eyebrows raise but do not open. Reacts to pain stimuli minimally.
[2023-12-08] MEDS ORDERED: Insulin Glargine-ygfn (Lantus) SQ SCH (09:30)
[2023-12-08] MEDS ORDERED: NS 1,000 ML IV SCH (10:30)
[2023-12-08] MEDS ORDERED: FLUSH ICA SCH (10:30)
[2023-12-08] MEDS ORDERED: SODIUM CITRATE 4% ICA SCH (10:30)
[2023-12-08] MEDS ORDERED: Albumin (Human) 100 ML IV SCH (10:30)
[2023-12-08] MEDS ORDERED: Insulin Human Regular/NS 100 ML IV SCH (10:45)
--- NOTE | 2023-12-08 13:21 | NUR ---
Referral was given to Benigno at [facility]. MARQUISE also provided update to Deshawn at [facility].
[2023-12-08 14:30] LABS: MEAN CELL VOLUME 92 fl (80.0-100.0); MEAN CORPUSCULAR HGB CONC 30 g/dl (33.0-37.0); MEAN PLATELET VOLUME 10.9 fl (7.4-10.4); PLATELET COUNT 177 K/mm3 (130-400); RED BLOOD COUNT 2.99 M/mm3 (4.10-5.30); REDCELL DISTRIBUTION WIDTH-CV 15.7 % (11.5-14.5)
[2023-12-08 14:40] LABS: HEMATOCRIT 27.5 % (37.0-47.0); HEMOGLOBIN 8.3 g/dl (12.5-16.0); MEAN CORPUSCULAR HEMOGLOBIN 28 pg (27-31)
[2023-12-08 14:53] LABS: BILIRUBIN,TOTAL 0.5 mg/dL (0.2-1.2); CREATININE, serum 2.09 mg/dL (0.57-1.11); POTASSIUM 3.3 mEq/L (3.5-4.5); TOTAL PROTEIN 6.2 g/dl (6.2-8.1)
--- NOTE | 2023-12-08 15:01 | NUR ---
artificial marble worker received a call from pt's daughter, Siomara requesting assistance with her printing, emailing, and faxing forms. MARQUISE inquired further about these forms before deciding what to do with this information. Siomara states it is for "life insurance." SW asked about what it was through. She reports "[employer], but I am not sure why that matters." MARQUISE advised she is just trying to gather all information and understand her request. She states she needs forms printed so she can fill them out, then have them faxed. MARQUISE advised she was not able to do this at this time due to being short staffed, but could pass this along to MARQUISE Arambula tomorrow to see if she is able. Siomara states, "Nevermind, I will try something else." MARQUISE informed MARQUISE Arnold of this as pt is in ICU.
--- NOTE | 2023-12-08 17:07 | NUR ---
Dialysis note Pt ran in ICU consent obtained. uf goal was set for 2.0 but was not able to tolerated d/t drop in bp. uf removed 1kg pt recieved 600 ml of NS durring tx. Bp stable at this time.
--- NOTE | 2023-12-08 17:41 | NUR ---
Patient has had two procedures done today. A temporary HD cath was placed in her left IJ by DR. Lao this AM after DR. Armstrong spoke with family. They have decided to do dialysis in attempt to help her situation. Dr. Lao was contacted to place the HD cath. Dialysis was contacted, dialysis was started. During dialysis, blood pressure was dropping into the 60s systolic. Levophed was adjusted appropriately. VSS stable. Dialysis was a success. More dialysis is in her near future unless family requests otherwise.
[2023-12-09] VITALS (60 sets, daily range): BP systolic 93–142; BP diastolic 41–73; PULSE 86–117; TEMP 97.8–99.5; O2SAT 91–100
[2023-12-09 00:16] LABS: HEPATITIS B SURFACE ANTIBODY <2.0 (()); HEPATITIS B SURFACE ANTIGEN Negative (Negative)
[2023-12-09 00:17] LABS: HEPATITIS C VIRUS ANTIBODY Negative (Nonreactiv)
[2023-12-09 00:59] LABS: HEPATITIS B CORE AB,TOTAL Negative (Negative)
--- NOTE | 2023-12-09 01:21 | NUR ---
PT IS IN BED ON A VENTILATOR. SHE DOES NOT OPEN EYES OR FOLLOW ANY COMMANDS. SHE APPEARS TO HAVE A SLIGHT W/D WHEN PAIN IS ELICITED. PT HAS AN OG TUBE WITH TUBE FEEDING AND FREE WATER. SHE HAS A MONTAGUE CATHETER. SHE HAS A DIALYSIS CATHETER LOCKED OFF. SHE HAS A RIGHT SUBCLAVIAN CENTRAL LINE WITH FENTANYL, PROPOFOL, LEVOPHED AND INSULIN INFUSING. SHE HAS WOUNDS TO HER BILATERAL LOWER LEGS AND BOTTOM. THERE IS NO FAMILY CURRENTLY AT THE BEDSIDE.
[2023-12-09] MEDS ORDERED: Potassium Chloride 100 ML IV ONE ×2 (01:45→08:00)
[2023-12-09 05:34] LABS: BASO % 0.1 % (0.0-2.0); EOS # 0.3 K/mm3 (0.0-0.7); EOS % 1.5 % (0.0-4.0); GRAN # 14.5 K/mm3 (1.4-6.5); GRAN % 82.1 % (42.2-75.2); LYMPH # 1.8 K/mm3 (1.2-3.4); LYMPH % 10.2 % (20.0-51.0); MEAN CELL VOLUME 89 fl (80.0-100.0); MEAN CORPUSCULAR HGB CONC 31 g/dl (33.0-37.0); MONO % 5.5 % (1.7-9.3); PLATELET COUNT 120 K/mm3 (130-400); RED BLOOD COUNT 2.68 M/mm3 (4.10-5.30); REDCELL DISTRIBUTION WIDTH-CV 15.3 % (11.5-14.5)
[2023-12-09 05:45] LABS: HEMATOCRIT 23.9 % (37.0-47.0); HEMOGLOBIN 7.5 g/dl (12.5-16.0); MEAN CORPUSCULAR HEMOGLOBIN 28 pg (27-31)
[2023-12-09 05:49] LABS: CALCIUM 7.7 mg/dL (8.4-10.2); CREATININE, serum 1.92 mg/dL (0.57-1.11); POTASSIUM 3.5 mEq/L (3.5-4.5)
--- NOTE | 2023-12-09 08:00 | NUR ---
Pt resting in bed with family (two daughters) at bedside. VSS. IV infusing without difficulty. Morning medications administered. Dr. Dominguez present to round on patient and provide updates to family. Pt had multiple bouts of diarrhea prompting insertion of rectal tube. Pt cleaned up and repositioned after insertion of rectal tube. Lines and tubes maintained in place throughout this intervention. Insulin gtt paused per Dr. Dominguez orders. Levophed gtt paused per blood pressure parameters. Daughters Siomara and Uma discussed with Dr. Dominguez about updates to pt and if pt can come off of fentanyl. Dr. Dominguez approved removal of fentanyl gtt due to family concerns with medication. Sedation paused to determine if pt would wake up and follow commands. Will continue to monitor pt off of sedation for signs of discomfort.
--- NOTE | 2023-12-09 08:45 | NUR ---
Sedation placed in standby for sedation vacation and weaning trial per Dr. Dominguez orders.
[2023-12-09] MEDS ORDERED: Apixaban 2.5 MG TABLET PO SCH (09:45)
[2023-12-09] MEDS ORDERED: Amiodarone 450 MG in D5W Excel 250 ML IV SCH ×2 (11:30→17:31)
[2023-12-09] MEDS ORDERED: Insulin Lispro (HumaLOG) SQ SCH (12:44)
--- NOTE | 2023-12-09 13:34 | NUR ---
SW sent clinical updates to [facility] Discharge planning: [facility]
--- NOTE | 2023-12-09 13:47 | NUR ---
Data: Patient is intubated. Family not present at time of visit. Assessment: None at this time. Plan of Care: Inspector Bullet Slugs offered non-anabaptist prayer for healing. RN present for prayer. Chaplains will remain available as needed/requested while Patient is admitted to this hospital.
[2023-12-09 14:14] LABS: CLOSTRIDIUM DIFF A/B NEG
--- NOTE | 2023-12-09 18:07 | NUR ---
Sedation vacation performed this morning. Pt did not tolerate well.
--- NOTE | 2023-12-09 18:32 | NUR ---
Primo boots applied to help keep pt's heels elevated and skin/feet protected.
[2023-12-09] MEDS ORDERED: Insulin Glargine-ygfn (Lantus) SQ SCH (21:30)
--- NOTE | 2023-12-09 22:34 | NUR ---
PT IS LAYING IN THE BED, SHE IS ON THE VENTILATOR. SHE DOES NOT RESPOND TO VOICE. SHE A CENTRAL LINE WITH PROPOFOL AND AMIODERONE INFUSING. SHE HAS A LEFT IJ DIALYSIS CATHETER LOCKED. SHE HAS A MONTAGUE CATHETER WITH URINE OUTPUT. SHE HAS AN OG TUBE WITH TUBE FEEDING AND FREE WATER. SHE HAS A RECTAL TUBE IN PLACE WITH STOOL IN THE BAG. SHE HAS PRIMO BOOTS IN PLACE AND ZEROFORM DRESSING OVER THE RIGHT LOWER LEG WOUND AREA. HER DAUGHTER IS AT THE BEDSIDE.
[2023-12-10] VITALS (540 sets, daily range): BP systolic 71–133; BP diastolic 47–60; PULSE 77–93; TEMP 97.9–101.2; O2SAT 81–100
[2023-12-10 05:12] LABS: ARTERIAL BLD GAS O2 SATURATION 98.1 % (92-100); ARTERIAL BLD GAS TCO2 CT 24.8; ARTERIAL BLOOD GAS BASE EXCESS 1.5 (-2-2); ARTERIAL BLOOD GAS HCO3 23.9 meq/L (22-26); ARTERIAL BLOOD GAS PCO2 29.3 mmHg (35-45); ARTERIAL BLOOD GAS PO2 90.2 mmHg (80-100); ARTERIAL BLOOD GAS pH 7.53 (7.35-7.45)
[2023-12-10 05:45] LABS: BASO % 0.1 % (0.0-2.0); EOS # 0.4 K/mm3 (0.0-0.7); EOS % 2.7 % (0.0-4.0); GRAN # 10.7 K/mm3 (1.4-6.5); GRAN % 77.5 % (42.2-75.2); LYMPH # 1.7 K/mm3 (1.2-3.4); LYMPH % 12.3 % (20.0-51.0); MEAN CELL VOLUME 89 fl (80.0-100.0); MEAN CORPUSCULAR HGB CONC 32 g/dl (33.0-37.0); MEAN PLATELET VOLUME 11.3 fl (7.4-10.4); MONO # 0.9 K/mm3 (0.1-0.6); MONO % 6.8 % (1.7-9.3); PLATELET COUNT 102 K/mm3 (130-400); RED BLOOD COUNT 2.65 M/mm3 (4.10-5.30); REDCELL DISTRIBUTION WIDTH-CV 15.4 % (11.5-14.5)
[2023-12-10 05:51] LABS: HEMATOCRIT 23.5 % (37.0-47.0); HEMOGLOBIN 7.4 g/dl (12.5-16.0); MEAN CORPUSCULAR HEMOGLOBIN 28 pg (27-31)
[2023-12-10 06:05] LABS: CALCIUM 7.5 mg/dL (8.4-10.2); CREATININE, serum 1.82 mg/dL (0.57-1.11); MAGNESIUM 2.6 mg/dL (1.6-2.6); POTASSIUM 3.5 mEq/L (3.5-4.5)
[2023-12-10] MEDS ORDERED: Potassium Chloride 100 ML IV ONE (06:30)
--- NOTE | 2023-12-10 07:09 | NUR ---
PLACED PT IN CPAP 5 PS 5 .RN NOTIFIED
--- NOTE | 2023-12-10 08:00 | NUR ---
Pt resting in bed. Spontaneous breathing trial occurring and pt tolerating well. VSS. Morning medications administered without difficulty. Pt repositioned and cleaned up. Daughter, Siomara, to bedside to visit pt. Dr. Dominguez and Dr. Harding to bedside to round and provide updates to family. Family does not have any concerns at this time. Rectal tube became displaced during repositioning and left out at this time.
[2023-12-10] MEDS ORDERED: Vancomycin 1.5 GM,Special Dose/Pharmacy Prepared 1.5 GM in NS 250 ML IV SCH (10:00)
[2023-12-10] MEDS ORDERED: Midazolam 2 MG/2 ML VIAL IV PRN (10:15)
[2023-12-10] MEDS ORDERED: fentaNYL 50 MCG/ML 2 ML VIAL IV PRN (10:15)
[2023-12-10] MEDS ORDERED: Amiodarone 200 MG TAB PO SCH (11:00)
--- NOTE | 2023-12-10 11:44 | NUR ---
SW sent clinical updates to [facility]
--- NOTE | 2023-12-10 17:48 | NUR ---
Pt remains off sedation and is tolerating the ventilator well.
--- NOTE | 2023-12-10 19:49 | NUR ---
STABLE ON ROUNDS. NO SIGN OF DISTRESS AT THIS TIME. CONTINUE PLAN OF CARE.
[2023-12-11] VITALS (202 sets, daily range): BP systolic 85–134; BP diastolic 44–62; PULSE 89–112; TEMP 98.6–99.6; O2SAT 92–100
[2023-12-11 04:30] LABS: ARTERIAL BLD GAS O2 SATURATION 97.5 % (92-100); ARTERIAL BLD GAS TCO2 CT 25.8; ARTERIAL BLOOD GAS BASE EXCESS 1.6 (-2-2); ARTERIAL BLOOD GAS HCO3 24.8 meq/L (22-26); ARTERIAL BLOOD GAS PO2 97.2 mmHg (80-100); ARTERIAL BLOOD GAS pH 7.49 (7.35-7.45)
--- NOTE | 2023-12-11 05:00 | NUR ---
PT HAS RECEIVED NO SEDATION THIS SHIFT.
[2023-12-11 06:09] LABS: BASO % 0.1 % (0.0-2.0); EOS # 0.5 K/mm3 (0.0-0.7); EOS % 4.2 % (0.0-4.0); GRAN # 7.6 K/mm3 (1.4-6.5); GRAN % 70.2 % (42.2-75.2); LYMPH # 1.8 K/mm3 (1.2-3.4); MEAN CELL VOLUME 88 fl (80.0-100.0); MEAN CORPUSCULAR HGB CONC 31 g/dl (33.0-37.0); MEAN PLATELET VOLUME 11.7 fl (7.4-10.4); MONO # 0.8 K/mm3 (0.1-0.6); MONO % 7.7 % (1.7-9.3); PLATELET COUNT 97 K/mm3 (130-400); RED BLOOD COUNT 2.43 M/mm3 (4.10-5.30); REDCELL DISTRIBUTION WIDTH-CV 15.3 % (11.5-14.5)
[2023-12-11 06:13] LABS: HEMATOCRIT 21.4 % (37.0-47.0); HEMOGLOBIN 6.7 g/dl (12.5-16.0); MEAN CORPUSCULAR HEMOGLOBIN 28 pg (27-31)
--- NOTE | 2023-12-11 06:28 | NUR ---
PT'S HG 6.7. WILL REPORT TO ON COMING HOSPITALIST. PT MORE RESPONSIVE OVERNIGHT. PT DOES NOT FOLLOW COMMANDS. WILL OPEN EYES TO SPEECH AND/OR PAIN. PT HAVING LIQUID STOOL. NO SIGN OF DISTRESS AT THIS TIME. CONTINUE WITH PLAN OF CARE.
[2023-12-11 06:29] LABS: BILIRUBIN,TOTAL 0.4 mg/dL (0.2-1.2); CALCIUM 7.7 mg/dL (8.4-10.2); CREATININE, serum 1.63 mg/dL (0.57-1.11); MAGNESIUM 2.5 mg/dL (1.6-2.6); PHOSPHOROUS 2.7 mg/dL (2.3-4.7); POTASSIUM 3.5 mEq/L (3.5-4.5); TOTAL PROTEIN 4.9 g/dl (6.2-8.1)
--- NOTE | 2023-12-11 06:54 | NUR ---
PHONE CALL FROM DR. VALLES. SHE WILL ORDER BLOOD WHEN SHE ROUNDS THIS MORNING.
--- NOTE | 2023-12-11 07:50 | NUR ---
Patient is resting with eyes closed, able to open eyes to voice and pain. NO sedation medication has been reported since Monday midnight, >24 hours without. While turning patient she did have a significant bowel movement with liquid stools. No able to follow commands. Will continue to monitor for changes in neuological status and following commands.
[2023-12-11 10:08] LABS: COLLECTION METHOD CATHETER
[2023-12-11 10:46] LABS: PH 6.5 (5.0-8.5); URINE APPEARANCE CLEAR (CLEAR/HAZY); URINE COLOR YELLOW (YELLOW)
[2023-12-11 10:47] LABS: URINE BLOOD 2+ (NEGATIVE); URINE GLUCOSE Negative (NEGATIVE); URINE KETONE Negative (NEGATIVE); URINE NITRATE Negative (NEGATIVE); URINE PROTEIN(semi-quant) 1+ (NEGATIVE); URINE UROBILINOGEN 0.2 E.U/dL (0.2-1.0)
--- NOTE | 2023-12-11 12:46 | NUR ---
SW attended clinical rounds with Dr. Harding. met with patient's daughter and her support people in room. Patient remains non responsive and unable to follow commands. Dr. Harding updated daughter on current condition and answer all questions. Discussed option of trach/PEG placement vs palliative/comfort care. Daughter asking appropriate questions. Patient is currently referred to [facility] pending family decision of aggressive vs comfort care. Discharge plan: [facility] vs comfort care.
--- NOTE | 2023-12-11 15:28 | NUR ---
During afternoon oral care, OG tube was coiled in the throat. I removed and replaced OG, new measurement is 65 cm at the lip. Chest Xray to confirm placement, auscultation/gastric secretions noted. Resuming tube feedings.
[2023-12-11 18:13] LABS: HEMATOCRIT 24.8 % (37.0-47.0)
--- NOTE | 2023-12-11 22:51 | NUR ---
PT IS IN THE BED. SHE HAS 3 VISITORS AT THE BEDSIDE. SHE IS ON THE VENTILATOR. SHE MOVES HER HEAD AND LIMBS, BUT DOES NOT OPEN HER EYES OR FOLLOW COMMANDS. SHE HAS A MONTAGUE CATHETER. SHE HAS AN OG TUBE WITH TUBE FEEDING AND FREE WATER FLUSHES. SHE HAS A RIGHT SUBCLAVIAN CENTRAL LINE WITH NOTHING INFUSING. SHE HAS A LEFT IJ DIALYSIS CATHETER LOCKED. SHE HAS ON BILATERAL PRIMO BOOTS.
[2023-12-12] VITALS (66 sets, daily range): BP systolic 109–140; BP diastolic 55–66; PULSE 77–102; TEMP 97.4–98.9; O2SAT 81–99
[2023-12-12 04:38] LABS: MEAN CELL VOLUME 88 fl (80.0-100.0); MEAN CORPUSCULAR HGB CONC 32 g/dl (33.0-37.0); MEAN PLATELET VOLUME 11.7 fl (7.4-10.4); PLATELET COUNT 95 K/mm3 (130-400); RED BLOOD COUNT 2.86 M/mm3 (4.10-5.30); REDCELL DISTRIBUTION WIDTH-CV 15.3 % (11.5-14.5)
[2023-12-12 04:41] LABS: HEMATOCRIT 25.1 % (37.0-47.0); MEAN CORPUSCULAR HEMOGLOBIN 28 pg (27-31)
[2023-12-12 04:57] LABS: CALCIUM 8.1 mg/dL (8.4-10.2); CREATININE, serum 1.46 mg/dL (0.57-1.11); MAGNESIUM 2.3 mg/dL (1.6-2.6); POTASSIUM 3.5 mEq/L (3.5-4.5)
[2023-12-12 04:59] LABS: ARTERIAL BLD GAS TCO2 CT 24.7; ARTERIAL BLOOD GAS BASE EXCESS 0.7 (-2-2); ARTERIAL BLOOD GAS HCO3 23.7 meq/L (22-26); ARTERIAL BLOOD GAS PCO2 31.4 mmHg (35-45); ARTERIAL BLOOD GAS PO2 78.7 mmHg (80-100)
[2023-12-12] MEDS ORDERED: Potassium Chloride 100 ML IV SCH (05:15)
[2023-12-12 05:35] LABS: ANISOCYTOSIS 1+; EOSINOPHIL 6 % (0-4); HYPOCHROMIA 1+; LYMPHOCYTE 16 % (20.0-51.0); NEUTROPHILS 69 % (42.0-75.2); NUCLEATED RED BLOOD CELL 1 (0-6); PLATELET ESTIMATE DECREASED (NORMAL)
[2023-12-12 07:46] LABS: CLOSTRIDIUM DIFF A/B NEG
--- NOTE | 2023-12-12 08:10 | NUR ---
Patient on ventilator with no sedation running. Eyes are open spontaneously and patient able to follow a few simple commands intermittently. Daughter at bedside at this time. Tolerating ventilator; Will continue to monitior.
[2023-12-12 08:31] LABS: ARTERIAL BLD GAS TCO2 CT 27.7; ARTERIAL BLOOD GAS BASE EXCESS 4.4 (-2-2); ARTERIAL BLOOD GAS HCO3 26.7 meq/L (22-26); ARTERIAL BLOOD GAS PCO2 31.3 mmHg (35-45); ARTERIAL BLOOD GAS PO2 62.1 mmHg (80-100); ARTERIAL BLOOD GAS pH 7.55 (7.35-7.45)
--- NOTE | 2023-12-12 09:00 | NUR ---
Family meeting for palliative care consult completed at this time time. Patient's daughter/DPOA, Siomara, present with friends & family. Dr. Waqas Dominguez discussed hospital course, medical problems with treatments & body systems affected. Discussed options for continued aggressive treatment to include trach/PEG placement & LTAC for ongoing care. Also discussed option of comfort care. Siomara stated that she wished to proceed with comfort care, but needed to talk with family that was not present. Dr. Dominguez left meeting. Further discussion with this author regarding specifics of what comfort care would entail, questions answered & support provided. Siomara will call her sister to inform her of plan; she is not sure if her sister will want to come to hospital or not. Patient has a grandson in [place] that would like to come, but Siomara does not want to prolong suffering & is not sure when he would be able to come to see patient. Siomara would like to start pain & anti-anxiety medications now, but not extubate until she can discuss with family. Dr. Waqas Dominguez & Dr. Asencio aware of plan & supportive. Title I Teacher notified of request for support related to comfort care plan.
[2023-12-12] MEDS ORDERED: Morphine 4 MG/ML VIAL IV PRN ×2 (09:45→12:15)
[2023-12-12] MEDS ORDERED: LORazepam 2 MG/ML 1 ML VIAL IV PRN ×2 (09:45→12:15)
[2023-12-12] MEDS ORDERED: Morphine Oral Concentrate 20 MG/ML UD SL PRN (09:45)
[2023-12-12] MEDS ORDERED: Haloperidol Lactate 5 MG/ML VIAL IV PRN (09:45)
[2023-12-12] MEDS ORDERED: Carboxymethylcellulose PF Ophth 0.4 ML DROPPERETTE OP PRN (09:45)
[2023-12-12] MEDS ORDERED: Albuterol 0.083% Neb Soln 2.5 MG/3 ML UD IH PRN (09:45)
--- NOTE | 2023-12-12 11:33 | NUR ---
MARQUISE attended clinical rounds with Dr. Dominguez. He planned to attempt to extubate patient this morning but patient is unable to follow commands. Patient's daughter and several family/friends in room. MARQUISE met with family in family waiting room with Dr. Dominguez and biomass plant technician Melanie for goals of care discussion. Daughter has made decision of comfort care. Family states there are two grandsons in [place] that they need to contact to inform of decision before patient is extubated. Patient has been changed to comfort care and will be extubated when family is ready. MARQUISE contacted Benigno at [facility] to inform of family decision.
--- NOTE | 2023-12-12 16:07 | NUR ---
PT EXTUBATED FOR COMFORT CARE. FAMILY IN ROOM PT ON ROOM AIR.
--- NOTE | 2023-12-12 19:50 | NUR ---
PT IS ON COMFORT CARE. SHE IS IN THE BED WITH HER EYES CLOSED, NOT RESPONSIVE AT THIS TIME. SHE DOES HAVE FAMILY AT THE BEDSIDE.
[2023-12-12] MEDS ORDERED: Scopolamine 1 MG Delivered 3-Day PATCH TD SCH (21:00)
--- NOTE | 2023-12-13 08:09 | NUR ---
Visited with family, advised them medications are available for her. At this time they declined any repositioning, assessments, medications, or vitals. Currently patient is breathing on room air, somulent, hr of 70. Looks to be straight in the bed and dry. IV lines are still present. HD port/Central dressing are intact, dry and clean. Will continue to monitor for decline.
[2023-12-13] MEDS ORDERED: Miconazole 2% Topical Powder BOTTLE TP PRN (08:30)
--- NOTE | 2023-12-13 10:03 | NUR ---
MARQUISE received call from medical billing manager Melanie stating that family is wanting to have patient on hospice care. MARQUISE called [facility] to inquire about bed availability. Spoke with Siomara who stated they have beds open. MARQUISE spoke with family who are agreeable to [facility] to [facility]. MARQUISE spoke with Dr. Asencio who is agreeable to discharge to hospice. MARQUISE faxed referral information to Siomara for review. Awaiting approval to transfer today. Family updated on process of transfer. SEVERO Khan made aware of transfer plan. Discharge plan: [facility]
[2023-12-13] MEDS ORDERED: SYSTANE 0.4%-0.1 SOL OU (10:34)
[2023-12-13] MEDS ORDERED: TRANSDERM-0.5 MG/21 TD (10:34)
[2023-12-13] MEDS ORDERED: TYLENOL SU650 MG/SUP RC (10:34)
[2023-12-13] MEDS ORDERED: DULCOLAX S10 MG/SUPP RC (10:34)
[2023-12-13] MEDS ORDERED: ROXANOL 20MG20 MG/ML SL (10:35)
[2023-12-13] MEDS ORDERED: ATIVAN 1MG T1 MG/TAB PO (10:35)
--- NOTE | 2023-12-13 13:16 | NUR ---
MARQUISE notified that patient is accepted for hospice admission today to [facility]. EMS transport set for 1400. Discharge orders and clinicals faxed to [facility]. Family notified. SEVERO Khan given report #[phone]. Patient admimtting to room 5.
--- NOTE | 2023-12-13 14:49 | NUR ---
Report given to Nlei at the [facility]. Latest updates where given. Patient left the floor via EMS on room air, a right subclavin central line and Hemodialysis access in the right internal jugular. Per comfort measures, lines were left in for IV medications. Hospice nurse stated that they do not use IV medications at that facility. Left [address] at 1410.
[2023-12-17] MEDS ORDERED: Amiodarone 200 MG TAB PO SCH (09:00)
[2023-12-24] MEDS ORDERED: Amiodarone 200 MG TAB PO SCH (09:00)
== END 2023-12-13 14:10 | disposition hospice, home (50) | DRG 870 ==
LOC: COL.ER 07:47 → ICU 10:24
PROVIDERS: Emergency Medicine; Internal Medicine; Internal Medicine Nephrology; Internal Medicine Pulmonary Disease; ADMIT Internal Medicine
PROC: 5A1955Z Respiratory Ventilation, Greater than 96 Consecutive Hours (ICD-10-PCS; principal; 2023-12-03)
PROC: 0BH17EZ Insertion of Endotracheal Airway into Trachea, Via Natural or Artificial Opening (ICD-10-PCS; 2023-12-03)
PROC: 3E043XZ Introduction of Vasopressor into Central Vein, Percutaneous Approach (ICD-10-PCS; 2023-12-03)
PROC: 02HV33Z Insertion of Infusion Device into Superior Vena Cava, Percutaneous Approach (ICD-10-PCS; 2023-12-03)
PROC: 02HV33Z Insertion of Infusion Device into Superior Vena Cava, Percutaneous Approach (ICD-10-PCS; 2023-12-08)
PROC: 5A1D70Z Performance of Urinary Filtration, Intermittent, Less than 6 Hours Per Day (ICD-10-PCS; 2023-12-08)
PROC: 30243N1 Transfusion of Nonautologous Red Blood Cells into Central Vein, Percutaneous Approach (ICD-10-PCS; 2023-12-11)
DX: A41.9 Sepsis, unspecified organism (principal); G93.41 Metabolic encephalopathy; J18.9 Pneumonia, unspecified organism; L89.153 Pressure ulcer of sacral region, stage 3; R65.21 Severe sepsis with septic shock; J96.01 Acute respiratory failure with hypoxia; N17.9 Acute kidney failure, unspecified; L03.116 Cellulitis of left lower limb; L03.115 Cellulitis of right lower limb; B37.89 Other sites of candidiasis; E87.20 Acidosis, unspecified; E87.3 Alkalosis; E87.0 Hyperosmolality and hypernatremia; E87.1 Hypo-osmolality and hyponatremia; Z68.41 Body mass index [BMI] 40.0-44.9, adult; F41.9 Anxiety disorder, unspecified; Z51.5 Encounter for palliative care; Z66 Do not resuscitate; F32.A Depression, unspecified; I10 Essential (primary) hypertension; J44.9 Chronic obstructive pulmonary disease, unspecified; Z20.822 Contact with and (suspected) exposure to COVID-19; E66.9 Obesity, unspecified; M19.90 Unspecified osteoarthritis, unspecified site; Z74.09 Other reduced mobility; G89.29 Other chronic pain; G25.81 Restless legs syndrome; M06.9 Rheumatoid arthritis, unspecified; E78.5 Hyperlipidemia, unspecified; M48.00 Spinal stenosis, site unspecified; E87.5 Hyperkalemia; I95.9 Hypotension, unspecified; E87.6 Hypokalemia; E11.65 Type 2 diabetes mellitus with hyperglycemia; I87.2 Venous insufficiency (chronic) (peripheral); D72.829 Elevated white blood cell count, unspecified; T38.0X5A Adverse effect of glucocorticoids and synthetic analogues, initial encounter; D64.9 Anemia, unspecified; K59.00 Constipation, unspecified; D69.6 Thrombocytopenia, unspecified; T36.8X5A Adverse effect of other systemic antibiotics, initial encounter; T50.2X5A Adverse effect of carbonic-anhydrase inhibitors, benzothiadiazides and other diuretics, initial encounter; K76.82 Hepatic encephalopathy; E87.8 Other disorders of electrolyte and fluid balance, not elsewhere classified; L89.611 Pressure ulcer of right heel, stage 1; I48.0 Paroxysmal atrial fibrillation; T68.XXXA Hypothermia, initial encounter; E11.40 Type 2 diabetes mellitus with diabetic neuropathy, unspecified; Z98.51 Tubal ligation status; Z88.2 Allergy status to sulfonamides; Z88.8 Allergy status to other drugs, medicaments and biological substances; Z99.3 Dependence on wheelchair; Z79.4 Long term (current) use of insulin; Z79.899 Other long term (current) drug therapy; Z23 Encounter for immunization
CPT/HCPCS: A4314; A9270; C1751; J0282; J1170; J1644; J1650; J1720; J1815; J1940; J2060; J2250; J2270; J2470; J2543; J2598; J2704; J2919; J3010; J3370; J3480; J7030; J7040; J7050; J7060; J7120; P9016; P9047; Q3014